=== PATIENT | male | born 1950 | race African-American/Black ===

== ENCOUNTER 2018-01-21 06:11 | Emergency (ER) | payer MEDICARE, MEDICAID ==
[~2018-01-21] VITALS: Ht 188 cm; Wt 118.2 kg
[~2018-01-21 06:11] MED LIST: ACCUPRIL10 MG; ACCUPRIL5MGTAB; ACCUPRIL5MGTAB PO; AMOXICILLIN 50500 MG PO; ASPIRIN 32325 MG/TA1 PO; ASPIRIN 32325 MG/TAB PO; ASPIRIN 81M81 MG/TA2 PO; CARDURA 8MG TAB8 MG PO; CARDURA1 MG PO; CEPHALEXIN500 M1 PO; COLACE 100100 MG/CAP PO; EFFIENT10 MG PO; FLEXERIL 1010 MG/TAB PO; INDERAL 20MG20 MG PO; LIPITOR 40MG TA40 MG PO; LOPRESSOR 225 MG/TAB PO; NORCO 325 MG-51 TAB PO; PEN-VEE K500 MG PO; PERCOCET 325 MG1 TA2 PO; PERCOCET 325 MG1 TAB PO; PLAVIX 75MG TAB75 MG PO; PREDNISONE20 MG PO; PRINIVIL10 MG PO; VALIUM 5MG T5 MG/TAB PO; ZESTRIL 10MG10 MG PO; ZESTRIL 5MG5 MG PO; ZOCOR 40MG40 MG PO
[2018-01-21 06:16] VITALS: TEMP 97.9
[2018-01-21] MEDS ORDERED: HYTRIN10 M1 PO (06:31)
[2018-01-21] MEDS ORDERED: CRESTOR40 MG PO (06:31)
[2018-01-21] MEDS ORDERED: PLAVIX 75MG TAB75 MG PO (06:32)
[2018-01-21] MEDS ORDERED: PRINIVIL10 MG PO (06:33)
[2018-01-21] MEDS ORDERED: TOPROL XL 25MG25 MG PO (06:33)
[2018-01-21] MEDS ORDERED: ASPIRIN E.C. 8181 MG PO (06:34)
[2018-01-21 08:01] LABS: COLLECTION METHOD CLEAN CATCH
[2018-01-21 08:07] LABS: PH 5 (5-8); SQUAMOUS EPITHELIAL 0-2 /hpf; URINE APPEARANCE Clear; URINE BACTERIA None Seen /hpf; URINE BILIRUBIN Negative (NEGATIVE); URINE BLOOD Negative (NEGATIVE); URINE COLOR Yellow; URINE GLUCOSE Negative (NEGATIVE); URINE KETONE Negative (NEGATIVE); URINE LEUKOCYTE ESTERASE Negative (NEGATIVE); URINE NITRATE Negative (NEGATIVE); URINE PROTEIN(semi-quant) Negative (NEGATIVE); URINE RBC 0-2 /hpf; URINE UROBILINOGEN Negative (NEGATIVE)
[2018-01-21] MEDS ORDERED: NORCO 325 MG-51 TAB PO (08:31)
[2018-01-21] MEDS ORDERED: VALIUM 2MG T2 MG/TAB PO (08:31)
[2018-01-21 08:39] VITALS: BP 127/78; PULSE 65
== END 2018-01-21 08:50 | disposition home or self-care (01) ==
LOC: COL.ER 06:11
PROVIDERS: Emergency Medicine
DX: M54.5 Low back pain (principal); I25.10 Atherosclerotic heart disease of native coronary artery without angina pectoris; Z95.5 Presence of coronary angioplasty implant and graft

== ENCOUNTER 2018-04-24 02:51 | Emergency (ER) | payer MEDICARE, MEDICAID ==
[~2018-04-24] VITALS: Ht 188 cm; Wt 118.2 kg
[~2018-04-24 02:51] MED LIST changes: +ASPIRIN E.C. 8181 MG PO; +CRESTOR40 MG PO; +HYTRIN10 M1 PO; +TOPROL XL 25MG25 MG PO; +VALIUM 2MG T2 MG/TAB PO
[2018-04-24 02:56] VITALS: PULSE 84; TEMP 98.1
[2018-04-24 03:15] VITALS: BP 126/70
[2018-04-24 03:52] LABS: BASO % 0.5 % (0.0-2.0); EOS # 0.4 (0.0-0.7); EOS % 5.7 % (0-4.0); GRAN # 2.5 (1.4-6.5); GRAN % 39.2 % (42.2-75.2); HEMATOCRIT 44.4 % (42.0-52.0); HEMOGLOBIN 14.7 g/dl (13.5-18.0); LYMPH # 2.8 (1.2-3.4); LYMPH % 44.6 % (20.0-51.0); MEAN CELL VOLUME 89 fl (80.0-100.0); MEAN CORPUSCULAR HEMOGLOBIN 30 pg (27.0-31.0); MEAN CORPUSCULAR HGB CONC 33 g/dl (33.0-37.0); MEAN PLATELET VOLUME 10.1 fl (7.4-10.4); MONO # 0.6 (0.1-0.6); MONO % 9.8 % (1.7-9.3); PLATELET COUNT 246 K/mm3 (130-400); RED BLOOD COUNT 4.99 M/mm3 (4.20-5.60); REDCELL DISTRIBUTION WIDTH-CV 14.1 % (11.5-14.5)
[2018-04-24 04:05] LABS: C-REACTIVE PROTEIN 0.7 mg/dL (0.0-0.9); CALCIUM 8.9 mg/dL (8.4-10.2); CREATININE, serum 0.95 mg/dL (0.66-1.25); MAGNESIUM 1.9 mg/dL (1.6-2.3); POTASSIUM 3.5 mmol/L (3.4-5.0)
[2018-04-24 04:14] LABS: PROTHROMBIN TIME 11.4 SECONDS (9.7-12.8)
[2018-04-24] MEDS ORDERED: LYRICA 75MG CAP75 MG PO (04:37)
[2018-04-24] MEDS ORDERED: PERCOCET 325 MG1 TA2 PO (04:37)
== END 2018-04-24 05:00 | disposition home or self-care (01) ==
LOC: COL.ER 02:51
PROVIDERS: Emergency Medicine
DX: M79.621 Pain in right upper arm (principal); E11.9 Type 2 diabetes mellitus without complications; I10 Essential (primary) hypertension; E78.5 Hyperlipidemia, unspecified; Z90.89 Acquired absence of other organs; Z79.02 Long term (current) use of antithrombotics/antiplatelets; Z79.82 Long term (current) use of aspirin

== ENCOUNTER 2021-01-01 11:10 | Emergency (ER) | payer MEDICARE, MEDICAID ==
[~2021-01-01] VITALS: Ht 185.4 cm; Wt 127.3 kg
[~2021-01-01 11:10] MED LIST changes: +LYRICA 75MG CAP75 MG PO
[2021-01-01 11:19] VITALS: TEMP 98.1
[2021-01-01 11:57] LABS: HEMATOCRIT 49.7 % (42.0-52.0); HEMOGLOBIN 16.7 g/dl (13.5-18.0); MEAN CELL VOLUME 87 fl (80.0-100.0); MEAN CORPUSCULAR HEMOGLOBIN 29 pg (27.0-31.0); MEAN CORPUSCULAR HGB CONC 34 g/dl (33.0-37.0); MEAN PLATELET VOLUME 10.4 fl (7.4-10.4); PLATELET COUNT 252 K/mm3 (130-400); RED BLOOD COUNT 5.71 M/mm3 (4.20-5.60); REDCELL DISTRIBUTION WIDTH-CV 14.3 % (11.5-14.5)
[2021-01-01 12:05] LABS: ALBUMIN 4.3 gm/dL (3.5-5.0); CREATININE, serum 1.07 (0.66-1.25); POTASSIUM 4.2 mmol/L (3.4-5.0); TOTAL PROTEIN 8.8 gm/dL (6.4-8.2)
[2021-01-01 12:17] LABS: TROPONIN-I 0.02 ng/mL (0.000-0.035)
[2021-01-01] MEDS ORDERED: CELEBREX 200MG200 MG PO (12:21)
[2021-01-01] MEDS ORDERED: JANUVIA 100MG100 MG PO (12:21)
[2021-01-01] MEDS ORDERED: PRINIVIL20 MG PO (12:21)
[2021-01-01] MEDS ORDERED: FLOMAX 0.40.4 MG/CAP PO (12:22)
[2021-01-01] MEDS ORDERED: GLUCOPHAGE500 MG/TAB PO (12:22)
[2021-01-01 12:28] LABS: BAND 10 % (0-10); LYMPHOCYTE 19 % (20.0-51.0); NEUTROPHILS 66 % (42.0-75.2); PLATELET ESTIMATE NORMAL (NORMAL)
[2021-01-01] MEDS ORDERED: ZOFRAN ODT4 MG SL (13:01)
[2021-01-01 14:00] VITALS: BP 127/89; PULSE 77
== END 2021-01-01 14:00 | disposition home or self-care (01) ==
LOC: COL.ER 11:10
PROVIDERS: Nurse Practitioner
DX: U07.1 COVID-19 (principal); I10 Essential (primary) hypertension; N40.0 Benign prostatic hyperplasia without lower urinary tract symptoms; E11.9 Type 2 diabetes mellitus without complications; I25.2 Old myocardial infarction; Z79.02 Long term (current) use of antithrombotics/antiplatelets; Z79.82 Long term (current) use of aspirin
CPT/HCPCS: J2405; J7030

== ENCOUNTER 2021-03-09 21:51 | Emergency (ER) | payer MEDICARE, MEDICAID ==
[~2021-03-09] VITALS: Ht 185.4 cm; Wt 122.7 kg
[~2021-03-09 21:51] MED LIST changes: +CELEBREX 200MG200 MG PO; +FLOMAX 0.40.4 MG/CAP PO; +GLUCOPHAGE500 MG/TAB PO; +JANUVIA 100MG100 MG PO; +PRINIVIL20 MG PO; +ZOFRAN ODT4 MG SL
[2021-03-09 21:53] VITALS: TEMP 98.4
[2021-03-09] MEDS ORDERED: FLEXERIL 1010 MG/TAB PO (22:34)
[2021-03-09 22:43] VITALS: BP 151/93; PULSE 91
== END 2021-03-09 22:43 | disposition home or self-care (01) ==
LOC: COL.ER 21:51
DX: M54.5 Low back pain (principal); M25.551 Pain in right hip; G89.29 Other chronic pain; I25.2 Old myocardial infarction; Z79.82 Long term (current) use of aspirin; Z79.02 Long term (current) use of antithrombotics/antiplatelets
CPT/HCPCS: J1885

== ENCOUNTER 2021-04-20 13:08 | Outpatient (RCR) | payer MEDICARE, MEDICAID | END 2021-04-21 15:06 | disposition home or self-care (01) | LOC: WSPT 13:08 | DX: M54.5 Low back pain (principal) ==